=== PATIENT | female | born 1965 | race Caucasian/White ===

== ENCOUNTER 2018-05-05 10:22 | Emergency (ER) | payer MEDICAID, OTHER ==
[~2018-05-05] VITALS: Ht 160 cm; Wt 69.5 kg
[2018-05-05 10:32] VITALS: BP 134/89
[2018-05-05] MEDS ORDERED: PLEASE ENTER ALLERGIES MC SCH (10:59)
[2018-05-05] MEDS ORDERED: CYCLOBENZAPRINE 10 MG TABLET PO ONE (11:00)
[2018-05-05] MEDS ORDERED: HYDROcodone/APAP 5/325 TABLET PO ONE (11:00)
[2018-05-05] MEDS ORDERED: HYDROcodone/APAP 5/325 TABLET ONE (11:03)
[2018-05-05] MEDS ORDERED: CYCLOBENZAPRINE 10 MG TABLET ONE (11:03)
== END 2018-05-05 11:34 | disposition home or self-care (01) ==
LOC: ED 11:30
DX: G89.29 Other chronic pain (principal); M54.9 Dorsalgia, unspecified; J43.9 Emphysema, unspecified; F17.200 Nicotine dependence, unspecified, uncomplicated; Z76.0 Encounter for issue of repeat prescription
CPT/HCPCS: 99283